=== PATIENT | female | born 1950 | race Caucasian/White ===

== ENCOUNTER 2023-06-26 23:44 | Inpatient (IN) | payer MEDICARE, OTHER, SELFPAY ==
[2023-06-26 15:29] VITALS: BP 149/102; BMI 24.0
[2023-06-26 16:07] LABS: % Basophils 0.4 % (0-2); % Eosinophils 0.1 % (0-6); % Immature Granulocytes 0.1 % (0-0.5); % Lymphocytes 29.3 % (20.5-51.1); % Neutrophils 63.1 % (42.2-75.2); Absolute Lymphocytes 2.1 10^3/uL (1.2-3.4); Absolute Monocytes 0.5 10^3/uL (0.1-0.6); Absolute Neutrophils 4.4 10^3/uL (1.4-6.5); Hematocrit 38.7 % (37.0-47.0); Hemoglobin 13.5 g/dL (12.0-16.0); Mean Corp Hgb Conc. 34.9 g/dL (33.0-37.0); Mean Corpuscular Hgb 32.6 pg (27.0-31.0); Mean Corpuscular Volume 93.5 fL (81.0-99.0); Mean Platelet Volume 9.8 fL (7.4-10.4); Nucleated Red Blood Cells % 0 %; Platelet Count 281 10^3/uL (130-400); Red Blood Cell Count 4.14 10^6/uL (4.20-5.40); Red Cell Dist. Width 13.1 % (11.5-14.5)
[2023-06-26 16:17] LABS: Amphetamines Negative (Negative); Barbiturates Negative (Negative); Benzodiazepines Negative (Negative); Buprenorphine Negative (Negative); Cocaine Negative (Negative); Marijuana Negative (Negative); Methadone Negative (Negative); Methamphetamines Negative (Negative); Opiates Negative (Negative); Phencyclidine Negative (Negative); Tricyclic Antidepressants Negative (Negative)
[2023-06-26 16:20] LABS: ALT (SGPT) 22 U/L (0-35); AST (SGOT) 27 U/L (14-36); Acetaminophen < 10 ug/ml (10-30); Albumin 4.6 g/dl (3.5-5.0); Alkaline Phosphatase 98 U/L (38-126); Blood Urea Nitrogen 12 mg/dl (7-17); Calcium 10.1 mg/dl (8.4-10.2); Carbon Dioxide 25 mmol/L (22-30); Chloride 100 mmol/L (98-107); Estimated Creatinine Clearance 64 ml/min; Glucose 112 mg/dl (70-99); Potassium 4.5 mmol/L (3.5-5.1); Salicylate < 1.0 mg/dl (2.0-20.0); Sodium 131 mmol/L (135-145); Total Bilirubin 0.5 mg/dl (0.2-1.3); Total Protein 7.9 g/dl (6.3-8.2); eGFR > 60.00
[2023-06-26 16:25] LABS: Alcohol None Detected
--- NOTE | 2023-06-26 18:14 | ED.GENMED ---
History of Present Illness
General
Chief Complaint: Overdose Unintentional
Source: patient and spouse
Exam Limitations: none
Time Seen by Provider: 06/26/23 18:14
Nursing documentation reviewed up to this point in time: agreed with
Travel History
Have you had any contact with someone who has COVID-19?: No
Do you have any symptoms of coronavirus? Fever > 100 degrees, chills, cough, shortness of breath, sore throat, loss of taste or smell, muscle aches, or headache?: No
History of Present Illness
History of Present Illness:
73-year-old female with history of HTN, bipolar disorder, depression went to bed 10 p.m. last night.
at bedside says he stayed up to watch TV, heard her calling him from down stairs at 5 a.m.
Pt states she was thirsty, she took 'too much Lamotrigine' by accident and she had to crawl down the stairs as she was extremely dizzy (room spinning) and couldn't walk due to the dizziness.
She has a 5/10 frontal headache, denies falling, her mouth is dry, she is nauseous, did vomit once last night.
states this happened once before
Pt state 'I'm absolutely positive I overdosed on the Lamotrigine' but cannot say how much she took.
Past History
Past History
ED Past Medical History: HTN, Psychiatric (Depression/anxiety, Bipolar) and Other (Left ankle fracture May 2016, PNA, RBBB. Eczema, ViT D Def, Cellulitis)
ED Past Surgical History: (�2) and Orthopedic (Left ankle bimalleolar fracture repair 05/25/2016; right hand surgery at age 19)
Social History
Tobacco: Non-smoker
Alcohol: Daily (Wine 2-3 glasses)
Drug: None
Personal:
Living: with family
Employment: Retired
Family History
Family History: Other (Noncontributory)
Review of Systems
Review of Systems
Allergies reviewed?: Yes
All Other Systems: ROS reviewed and negative except as documented in HPI and ROS
Constitutional: Denies fever
Respiratory: Denies trouble breathing
Cardiac: Denies chest pain
ABD/GI: Denies abdominal pain or nausea
: Denies dysuria, difficulty voiding or urgency
Musculoskeletal: Reports no symptoms; Denies edema, neck pain or back pain
Skin: Reports no symptoms
Neurological: Reports dizzy and headache; Denies weakness or numbness
Psychiatric: Denies depression or suicidal
Phy Exam
Physical Exam
Physical Exam:
GENERAL: No acute distress. A&Ox3.
CONSTITUTIONAL: Afebrile.
EYES: PERRL, conjunctivae normal
Neck: Supple
ENMT: moist mucus membranes, Pharynx nl
RESPIRATORY: Regular respirations, nonlabored, lungs clear.
CARDIOVASCULAR: Regular rate and rhythm, no murmurs, no rubs.
GI: Soft, nontender, normal BS
MUSCULOSKELETAL: Moves with ease. Well perfused.
SKIN: Warm, dry, pink
PSYCH: Normal mood and affect. Well kept, interactive and appropriate
NEUROLOGIC: Awake, alert and oriented. Speech clear, CN 2-12 intact. Finger to nose intact. No focal neurological deficits. Strength 5/5 throughout
Course
Orders/Labs/Results
Orders:
Orders
06/26/23 Dinner
Regular
At Your Request: Full Participation
Does patient need a safe tray?: No
06/26/23 15:35
Electrocardiogram (*1) Urgent
Reason for Study: Other
Other Reason for Exam: Potential overdose
06/26/23 15:36
EKG- Treatment ONCE
06/26/23 15:45
Acetaminophen Urgent
Alcohol Urgent
Complete Blood Count/With Diff Urgent
Comprehensive Metabolic Panel Urgent
Lamictal [Lamotrigine (Lamictal)] [S] Urgent
Salicylate Urgent
Urine Drug Abuse Screen Urgent
Date Specimen was Collected: 06/26/23
Time Specimen was Collected: 15:36
06/26/23 18:28
0.9% Sodium Chloride 1000 ml [Nss] 1,000 ml IV BOLUS
06/26/23 19:30
CT Head W/o Iv Contrast Urgent
Comment:
Reason For Exam: dizziness, overdose lamotrigine
06/26/23 21:17
0.9% Sodium Chloride 500 ml [Nss] 500 ml IV BOLUS
Meclizine [Antivert] 25 mg .ROUTE .STK-MED ONE
Meclizine [Antivert] 25 mg PO NOW STA
06/26/23 22:06
Acetaminophen [Tylenol] 1,000 mg PO NOW STA
Ondansetron Injectable [Zofran] 4 mg IV NOW STA
06/26/23 22:07
Acetaminophen [Tylenol] 1,000 mg .ROUTE .STK-MED ONE
Ondansetron Injectable [Zofran] 4 mg .ROUTE .STK-MED ONE
06/26/23 23:00
Flush (0.9% Sodium Chloride) [Flush (Nss)] See Dose Instructions IV PER PROTOCOL
06/26/23 23:04
Admit/Transfer Patient As Directed
Co-Sign Provider:
Level of Care: Inpatient admission
Assign to:: Telemetry
Physician / Group: cait
Diagnosis: lamotrigine toxicity
Reason for Telemetry: Arrhythmia
Date to Stop Telemetry: 06/29/23
Time to Stop Telemetry: 11:00
Reason for Hospitalization: lamotrigine toxicity
Expected length of stay greater than two midnights?: Yes
ELOS- Estimated Length of Stay in days: 2
I certify the patient meets the requirements for IP care: Yes
06/26/23 23:05
Code Status As Directed
Resuscitation Status: Full Code
06/26/23 23:10
Promethazine [Phenergan] 12.5 mg 0.9% Sodium Chloride 50 ml [Nss] 50 ml IV Q4HPRN
06/26/23 23:55
0.9% Sodium Chloride 1000 ml [Nss] 1,000 ml IV 100 mls/hr
Acetaminophen [Tylenol] 650 mg PO Q4HPRN PRN
06/26/23 23:55
Activity As Directed
Activity Level: As Tolerated
Vital Signs As Directed
Frequency: Per unit guidelines
DX Deep Vein Thrombosis Video Routine
06/27/23 04:04
Complete Blood Count/With Diff IN AM
Comprehensive Metabolic Panel IN AM
06/27/23 06:00
EKG [Electrocardiogram (*1)] IN AM
Reason for Study: QTc Monitoring
06/27/23 08:00
Cholecalciferol (Vitamin D3) [VITAMIN D3 (cholecalciferol)] 25 mcg PO DAILY
Heparin 5,000 units SC Q12
06/29/23 11:00
DC Protocol for Telemetry ONCE
Abnormal Lab Results
06/26/23
15:45
RBC 4.14 L 10^6/uL
(4.20-5.40)
MCH 32.6 H pg
(27.0-31.0)
Sodium 131 L mmol/L
(135-145)
Glucose 112 H mg/dl
(70-99)
Salicylates < 1.0 L mg/dl
(2.0-20.0)
Acetaminophen < 10 L ug/ml
(10-30)
06/26/23 15:45
06/26/23 15:45
Vital Signs
Initial and Last Documented VS:
Initial Vital Signs
Temp Pulse Resp BP Pulse Ox
98.7 F 79 16 149/102 98
06/26/23 15:29 04/10/24 15:29 06/26/23 15:29 06/26/23 15:29 06/26/23 15:29
Last Documented Vital Signs
Temp Pulse Resp BP Pulse Ox
98.3 F 69 13 146/93 93
06/26/23 23:54 06/27/23 07:15 06/27/23 07:15 06/27/23 04:06 06/27/23 07:15
MDM/Problems Addressed
Differential Diagnosis Includes:
overmedication, BPPV, CVA, Suicide attempt
MDM/Problems Addressed:
73-year-old female with history of HTN, bipolar disorder, depression went to bed 10 p.m. last night.
at bedside says he stayed up to watch TV, heard her calling him from down stairs at 5 a.m.
Pt states she was thirsty, she took 'too much Lamotrigine' by accident and she had to crawl down the stairs as she was extremely dizzy (room spinning) and couldn't walk due to the dizziness.
She has a 5/10 frontal headache, denies falling, her mouth is dry, she is nauseous, did vomit once last night.
states this happened once before when she accidentally overdosed on Seroquel.
Pt state 'I'm absolutely positive I overdosed on the Lamotrigine' but cannot say how much she took.
Denies suicidal thoughts. does not want to harm herself
CT head: Radiology report read: IMPRESSION:
1. There is no acute intracranial process.
2. Mild volume loss.
06/26/2023 2207 PM
After IVFs and Meclizine patient states she has a headache and is nauseous
06/26/2023 2240 PM
Patient out of bed and attempting to ambulate not comfortable going home as she is afraid she will fall.
Lamotrigine level pending.
Pt now states she thinks she took 6 Lamotrigine pills last night instead of two.
Plan: Admit: Ambulatory dysfunction, accidental over medication
Hospitalist notified of admission.
*EKG
EKG Intrepretation Date: 06/26/23
Interpretation: abnormal
Rate: normal
Rhythm: sinus
[place]: left axis deviation
Interval: long QT
QRS Pattern: normal QRS and right bundle branch block
Ischemia: no ischemia
*Critical Care Note
Total Time (30-74mins, 75-104mins- exclusive of procedures): Not Applicable
ED Attending Note
-
Portions of this chart may have been created with voice recognition software.� Occasional wrong word or��sound alike� substitutions may have occurred due to the inherent limitations of voice recognition software.
Discharge Plan
Departure
Patient Disposition: Admit
Date of Disposition: 06/26/23
Time of Disposition: 22:53
Presentation/result/management discussed w/ accepting MD/DO: Hospitalist
Condition: Fair
Discharge Problem:
Dizziness, Accidental overdose
Interventions
Interventions:
*Risk Screen - Suicide Last Done: 06/26/23 15:29
*General Assessment Last Done: 06/26/23 18:26
*Neglect/Abuse Screening Last Done: 06/26/23 15:29
ED- Fall Risk Assessment Last Done: 06/26/23 15:29
*ED COVID-19 Vaccine History Last Done: 06/26/23 15:29
*Nursing Disposition Last Done: 06/27/23 07:10
ED- Cardiac Assessment Last Done: 06/27/23 00:00
ED- Neurological Assessment Last Done: 06/27/23 00:00
ED-Psychological Assessment Last Done: 06/26/23 19:01
ED- Pulmonary Assessment Last Done: 06/27/23 00:00
[2023-06-26] MEDS: NSS 1000 IV (18:34)
[2023-06-26 18:40] VITALS: BP 162/97
[2023-06-26 19:00] VITALS: BP 153/94
[2023-06-26 21:00] VITALS: BP 148/110
[2023-06-26] MEDS: ANTIVERT 25 MG PO (21:20)
[2023-06-26] MEDS: NSS 500 IV (21:20)
[2023-06-26 22:00] VITALS: BP 150/108
[2023-06-26] MEDS: ZOFRAN 4 MG IV (22:09)
[2023-06-26] MEDS: TYLENOL 1000 MG PO (22:09)
--- NOTE | 2023-06-26 23:08 | HPS.HSE ---
Addendum entered and electronically signed by Vaughn Crow MD 06/26/23 23:11:
Held HCTZ.
Original Note:
Family Physician
-
Family Physician: Felicia Reeves
Chief Complaint
-
vertigo
History of Present Illness
73-year-old female past medical history of hypertension, bipolar disorder, depression, eczema, vitamin D deficiency, presenting with unintentional overdose. at bedside states that patient went to bed at 10 PM last night. He stated later he
heard her calling him from downstairs at 5 AM. Patient states that she was thirsty and took too much lamotrigine by accident and she had to crawl down the stairs as she was extremely dizzy with room spinning could not walk due to the vertigo. He
has 5 out of 10 frontal headache, and dry mouth, nausea and did vomit once last night. She also had some loose stools. Denies any abdominal pain. states that this happened once previously. Patient is sure that she took too much Lamictal
and took 6 tablets instead of 2. Her symptoms are improving. She denies any chest pain or shortness of breath or blurry vision, focal weakness or numbness or tingling. Denies any suicidal intent.
Medical History
Past Medical History
Past Medical History: Reports Other ( hypertension, bipolar disorder, depression, eczema, vitamin D deficiency)
Past Surgical History: Reports Other ( (�2) and Orthopedic (Left ankle bimalleolar fracture repair 05/25/2016; right hand surgery at age 19))
Social History
Tobacco: Non-smoker
Alcohol: Daily
Drug: None
Family History
Family History: Not pertinent
Allergies / Home Medications
Allergies reflects when Allergies were last updated in [employer].
Home Medications with original date entered in [employer]
Allergy/Medication List:
Allergies
Allergy/AdvReac Type Severity Reaction Status Date / Time
No Known Allergies Allergy Verified 06/26/23 15:29
Home Medications
lamotrigine 25 mg chewable dispersible tablet 300 mg PO QPM 06/15/12
quetiapine 50 mg tablet (Seroquel) 75 mg PO QPM 06/15/12
cholecalciferol (vitamin D3) 50 mcg (2,000 unit) tablet 4,000 units PO DAILY 05/14/20
lisinopril 20 mg tablet 20 mg PO DAILY 05/14/20
hydrocodone 5 mg-acetaminophen 325 mg tablet 1 tab PO Q6H PRN pain #10 tabs 10/01/21
Review of Systems
-
History Source: Patient
A 12 point ROS was completed and negative except as noted: Yes
Constitutional: Reports No Symptoms
EENT: Reports No Symptoms
Respiratory: Reports No Symptoms
Cardiac: Reports No Symptoms
Abdomen/GI: Reports No Symptoms
: Reports No Symptoms
Musculoskeletal: Reports No Symptoms
Skin: Reports No Symptoms
Neurological: Reports No Symptoms
Endocrine: Reports No Symptoms
Hematologic/Lymphatic: Reports No Symptoms
Psych: Reports No Symptoms
Physical Exam
Vital Signs
Vital Signs
Temp Pulse Resp BP Pulse Ox
98.7 F 74 18 153/94 98
06/26/23 15:29 06/26/23 19:45 06/26/23 19:45 06/26/23 19:00 06/26/23 19:45
Physical Exam
General: Well Developed, Well Nourished and No Apparent Distress
HEENT: NormoCephalic, Moist mucous membranes and Atraumatic
Respiratory: Clear
Cardiac: S1/S2 and Regular Rhythm; No Murmur or Rub
GI: Soft, Non Tender, Non Distended and Normal Bowel Sounds; No Organomegaly
Rectal: Deferred by Provider
Musculoskeletal: No Clubbing, No Cyanosis and No Edema
Skin: No Rash
Neuro: Nonfocal/grossly intact
Laboratory Results
-
06/26/23 15:45
06/26/23 15:45
Laboratory Results
Total Bilirubin 0.5 mg/dl (0.2-1.3) 06/26/23 15:45
AST 27 U/L (14-36) 06/26/23 15:45
ALT 22 U/L (0-35) 06/26/23 15:45
Alkaline Phosphatase 98 U/L (38-126) 06/26/23 15:45
Data Reviewed
-
Lab Data: Labs Reviewed by me
Old Records: Reviewed
Impression/Plan
-
IMPRESSION:
PLAN:
# Unintentional lamotrigine overdose
# QTc prolongation
# Old right bundle branch block
-UDS shows negative salicylates, Tylenol, negative alcohol and drug panel
-Lamotrigine level pending
-Telemetry monitoring
-IV fluids
-hold lamotrigine and Seroquel
-EKG shows normal sinus rhythm with QTc of 495, right bundle branch block which is old
-Check EKG in the morning
-Minimize antiemetics, Phenergan if needed for nausea
# Hyponatremia secondary to vomiting
-Monitor with IV fluids
Bipolar disorder
-Hold Lamictal, Seroquel
Daily alcohol use
-2 glasses of wine daily
Essential hypertension
-Continue lisinopril
Eczema
Vitamin D deficiency
Full code
DVT prophylaxis�heparin
Regular diet
[2023-06-26 23:53] VITALS: BP 151/81
[2023-06-27] VITALS (7 sets, daily range): BP systolic 112–146; BP diastolic 50–93; PULSE 78–81; BMI 23.8
[2023-06-27] MEDS: NSS 1000 IV ×2 (00:10→09:14)
[2023-06-27 04:16] LABS: % Basophils 0.5 % (0-2); % Eosinophils 0.7 % (0-6); % Immature Granulocytes 0.3 % (0-0.5); % Lymphocytes 48.7 % (20.5-51.1); % Monocytes 7.9 % (1.7-9.3); % Neutrophils 41.9 % (42.2-75.2); Absolute Lymphocytes 2.8 10^3/uL (1.2-3.4); Absolute Monocytes 0.5 10^3/uL (0.1-0.6); Absolute Neutrophils 2.4 10^3/uL (1.4-6.5); Hematocrit 35.4 % (37.0-47.0); Hemoglobin 11.7 g/dL (12.0-16.0); Mean Corp Hgb Conc. 33.1 g/dL (33.0-37.0); Mean Corpuscular Volume 96.7 fL (81.0-99.0); Mean Platelet Volume 10.3 fL (7.4-10.4); Nucleated Red Blood Cells % 0 %; Platelet Count 240 10^3/uL (130-400); Red Blood Cell Count 3.66 10^6/uL (4.20-5.40); Red Cell Dist. Width 13.1 % (11.5-14.5); White Blood Cell Count 5.8 10^3/uL (4.8-10.8)
[2023-06-27 04:43] LABS: ALT (SGPT) 18 U/L (0-35); AST (SGOT) 22 U/L (14-36); Albumin 3.9 g/dl (3.5-5.0); Alkaline Phosphatase 77 U/L (38-126); Blood Urea Nitrogen 7 mg/dl (7-17); Calcium 9.3 mg/dl (8.4-10.2); Carbon Dioxide 26 mmol/L (22-30); Chloride 102 mmol/L (98-107); Estimated Creatinine Clearance 64 ml/min; Glucose 103 mg/dl (70-99); Potassium 3.9 mmol/L (3.5-5.1); Sodium 134 mmol/L (135-145); Total Bilirubin 0.7 mg/dl (0.2-1.3); Total Protein 6.7 g/dl (6.3-8.2); eGFR > 60.00
[2023-06-27] MEDS: TYLENOL 650 MG PO (06:48)
[2023-06-27] MEDS: HEPARIN 5000 UNITS SC (09:12)
[2023-06-27] MEDS: VITAMIN D3 (cholecalciferol) 25 MCG PO (09:12)
--- NOTE | 2023-06-27 10:56 | W.PN.HOSP.TC ---
Addendum entered and electronically signed by Carter Hastings MD 06/27/23 12:50:
Patient was reevaluated. Patient worked with physical therapy earlier today. Patient without any lightheaded dizziness, headache, blurred vision diarrhea or drowsiness. Currently listening to audiobooks. Patient tolerating diet. Vitals stable.
Patient eager to get discharged. Recommended to hold lamotrigine tonight and restart tomorrow.
More than 30 minutes spent in discharge including
Final examination of the patient
Summarizing hospital stay
Instructions for continuing care to all relevant caregivers
Preparation of discharge records, prescriptions, and referral forms
Total time spent (in minutes): 45
Original Note:
Today's Communication/Plan
-
PT eval
check orthostatics
await lamictal level -probably will take time
tolerating diet
If feeling better tentative dc later
Assessment / Plan
Assessment / Plan
# Unintentional lamotrigine overdose
# QTc prolongation imrpoved
# Chronic right bundle branch block-Saw Cardiology in the past
-UDS shows negative salicylates, Tylenol, negative alcohol and drug panel
-Lamotrigine level pending-Pt understands it's send out and will take time.
-Telemetry monitoring
-IV fluids
-hold lamotrigine and Seroque and can probably restart in am. Took 5 tablets of lamotrigine instead of usual 2 tablets.
-EKG with improvement in QTc to 462.
-Minimize antiemetics, Phenergan if needed for nausea
# Hyponatremia secondary to vomiting
-improved.
Bipolar disorder
-Hold Lamictal, Seroquel
Daily alcohol use
-2 glasses of wine daily
Essential hypertension
-Check orthostatics. If negative restart HCTZ
Eczema
Vitamin D deficiency
Full code
DVT prophylaxis�heparin
Regular diet
Anticipated Discharge: Within 24 hours
Subjective/Interval History
-
Date of Service: June 27, 2023
States feeling better compared to baseline
States she forgot that she took lamotrigine early on in the day and then decided to take additional dose to make up for it
Denies any suicidal ideation
States it was accidental mistake
Asked multiple times if he was intentional which patient refused
States of mild lightheadedness
Objective Data
-
Labs:
Laboratory Results
06/27/23
04:04
WBC 5.8
Hgb 11.7 L
Hct 35.4 L
Plt Count 240
Sodium 134 L
Potassium 3.9
Chloride 102
Carbon Dioxide 26
BUN 7
Creatinine 0.7
Glucose 103 H
Calcium 9.3
Total Bilirubin 0.7
AST 22
ALT 18
Alkaline Phosphatase 77
Vital Signs:
Vital Signs
Temp Pulse Resp BP Pulse Ox
98.3 F 69 13 146/93 93
06/26/23 23:54 06/27/23 07:15 06/27/23 07:15 06/27/23 04:06 06/27/23 07:15
Physical Exam
-
General: Well Developed and No Apparent Distress
HEENT: Normocephalic, Atraumatic and Moist Mucous Membranes
Respiratory: Clear to Auscultation
Cardiac: Regular Rhythm and S1/S2; Negative Murmur, Rub or Gallop
GI: Soft, Nontender, Nondistended and Normal Bowel Sounds; Negative Organomegaly
Rectal: Deferred by Provider
Musculoskeletal: No Clubbing, No Cyanosis and No Edema
Skin: Negative Rash
Neuro: Awake, AO x 3, No Motor Deficits and Nonfocal/Grossly Intact
Psych: Calm
Data Reviewed
-
Total Time Spent with Patient (in minutes): 55
--- NOTE | 2023-06-27 12:51 | W.DCSUMMARY ---
Discharge Summary
Discharge Data
Date of Admission: 06/26/23
Date of Discharge: 06/27/23
-
Pending Results: No
Hospital Course
73-year-old female past medical history of bipolar, hypertension, alcohol abuse, vitamin D deficiency is presenting from home with nausea and lightheadedness. Patient states she forgot she took lamotrigine earlier in the day and she took extra
tablets. Denied suicidal intent. States she took 3 extra pills. Patient was started on IV fluid resuscitation. Patient initial EKG with QTc prolonged at 495 which downtrended to 462. Patient lamotrigine level was checked and it was still
pending. Urine drug screen was negative. Salicylate and acetaminophen level negative. Alcohol nondetected. Patient was tolerating diet. Patient was seen by physical therapy. Patient without any lightheaded or dizziness. Patient was tolerating
diet without any nausea or vomiting. No headache.. Patient be discharged home with recommendation to hold lamotrigine dose tonight and restart tomorrow.
Discharge Plan
-
Patient Disposition: Home (Routine Discharge)
Discharge Diagnosis/Procedures: Lamotrigine accidental overdose
Dehydration
Condition: Fair
Diet: As tolerated
Activity: With assistance
Driving Restrictions: No driving for 24 hours
Referrals:
Felicia Reeves MD [Family Provider] - in less than 1 week
Prescriptions:
Continued
quetiapine 100 mg tablet
100 mg PO HS
hydrochlorothiazide 25 mg tablet
25 mg PO DAILY
cholecalciferol (vitamin D3) [Vitamin D3] 25 mcg (1,000 unit) Tablet
25 mcg PO DAILY
Held
lamotrigine 200 mg tablet
400 mg PO HS
Hold Instructions: Resume on 06/28/23.
Discharge Orders:
Discharge Patient (As Directed); Ordered 06/27/23
Ordered By: Carter Hastings
Discharge Date and Time
Discharge Date/Time: 06/27/23 13:15
Print Language: PASHTO
--- NOTE | 2023-06-27 13:14 | CM ---
CM reviewed medical records. Patient medically ready for discharge. No needs noted.
PLAN: home no needs.
--- NOTE | 2023-06-27 13:22 | PTCARENOTE ---
Discharge instructions reviewed with pt and . IV site removed. Pt walked out by self.
[2023-06-28 15:22] LABS: Lamotrigine (Lamictal) 17.9 ug/mL (3.0-15.0)
== END 2023-06-27 13:15 | disposition home or self-care (01) | DRG 918 ==
LOC: ED 23:44
PROVIDERS: Student in an Organized Health Care Education/Training Program; ADMITTING PHYSICIAN Hospitalist; ATTENDING PHYSICIAN Hospitalist; EMERGENCY PHYSICIAN Emergency Medicine; FAMILY PHYSICIAN Family Medicine
DX: T42.6X1A Poisoning by other antiepileptic and sedative-hypnotic drugs, accidental (unintentional), initial encounter (principal); E87.1 Hypo-osmolality and hyponatremia; R42 Dizziness and giddiness; E86.0 Dehydration; F31.9 Bipolar disorder, unspecified; I10 Essential (primary) hypertension; I45.10 Unspecified right bundle-branch block; F41.9 Anxiety disorder, unspecified; R26.2 Difficulty in walking, not elsewhere classified; E55.9 Vitamin D deficiency, unspecified; L30.9 Dermatitis, unspecified; F10.10 Alcohol abuse, uncomplicated; Y92.009 Unspecified place in unspecified non-institutional (private) residence as the place of occurrence of the external cause; Z87.828 Personal history of other (healed) physical injury and trauma
CPT/HCPCS: 70450; 80053; 80143; 80175; 80179; 80306; 82077; 85025; 93005; 96361; 96374; 97161; 99285

== ENCOUNTER → 2024-02-17 16:45 | Outpatient (REF) | payer MEDICARE, OTHER, SELFPAY | LOC: HWRAD 16:45 | PROVIDERS: ATTENDING PHYSICIAN Family Medicine; REFERRING PHYSICIAN Family Medicine | DX: S69.92XA Unspecified injury of left wrist, hand and finger(s), initial encounter (principal) | CPT/HCPCS: 73120 ==

== ENCOUNTER 2024-08-31 22:47 | Emergency (ER) | payer MEDICARE, OTHER, SELFPAY ==
[2024-08-31 22:53] VITALS: BP 121/85
[2024-08-31 23:24] VITALS: BP 122/87
--- NOTE | 2024-08-31 23:46 | ED.GENMED ---
History of Present Illness
General
Chief Complaint: Overdose Unintentional
Source: patient
Exam Limitations: none
Time Seen by Provider: 08/31/24 23:10
Nursing documentation reviewed up to this point in time: agreed with
History of Present Illness
History of Present Illness:
The patient is a 74-year-old female who presented with a concern of potentially ingesting an excessive amount of ibuprofen. The patient reported that she took her routine medications, which include lamotrigine, sertraline, omeprazole, vitamins, and
a laxative. Additionally, she consumed 1,000 milligrams of ibuprofen [id number]. Her primary concern was whether this dose posed any risk to her health. The patient is not on blood thinners and has no history of gastrointestinal ulcers, heart
disease, or stroke. The potential risks of ibuprofen were discussed.
Past History
Past History
ED Past Medical History: HTN, Psychiatric (Depression/anxiety, Bipolar) and Other (Left ankle fracture May 2016, PNA, RBBB. Eczema, ViT D Def, Cellulitis)
ED Past Surgical History: (�2) and Orthopedic (Left ankle bimalleolar fracture repair 05/25/2016; right hand surgery at age 19)
Social History
Tobacco: Non-smoker
Alcohol: Daily (Wine 2-3 glasses)
Drug: None
Personal:
Living: with family
Employment: Retired
Family History
Family History: Other (Noncontributory)
Review of Systems
Review of Systems
Allergies reviewed?: Yes
All Other Systems: ROS reviewed and negative except as documented in HPI and ROS
Phy Exam
Physical Exam
Physical Exam:
GENERAL: Alert , in no apparent distress
EYE: pupils equal and reactive
NECK: Supple, no significant adenopathy.
ENT: o/p clr, mmm.
CARDIAC: Regular rate and rhythm .
LUNGS: Clear breath sounds bilaterally, no acute respiratory distress, no wheezes/rales/rhonchi
ABDOMEN: Soft, without focal tenderness, no r/g, no cvat
NEUROLOGICAL: Alert and oriented, no focal neuro deficits
SKIN: Warm and dry, skin intact.
MUSCULOSKELETAL: No edema, well perfused.
PSYCH: Normal and appropriate interaction.
Course
Vital Signs
Initial and Last Documented VS:
Initial Vital Signs
Temp Pulse Resp BP Pulse Ox
98.6 F 95 19 121/85 95
08/31/24 22:53 08/31/24 22:53 08/31/24 22:53 08/31/24 22:53 08/31/24 22:53
Last Documented Vital Signs
Temp Pulse Resp BP Pulse Ox
98.6 F 95 19 122/87 95
08/31/24 22:53 08/31/24 22:53 08/31/24 22:53 08/31/24 23:24 08/31/24 23:24
MDM/Problems Addressed
MDM/Problems Addressed:
74-year-old female presenting with concerns of taking 1000 mg of ibuprofen prior to arrival. Here she is well-appearing no distress with normal vital signs. She is not take any blood thinners, no history of kidney disease heart disease or previous
stroke vascular disease. Patient's dose of 1000 mg unlikely cause any emergent process. Patient no symptoms at this time stable for discharge.
*Critical Care Note
Total Time (30-74mins, 75-104mins- exclusive of procedures): Not Applicable
ED Attending Note
-
Portions of this chart may have been created with voice recognition software.� Occasional wrong word or��sound alike� substitutions may have occurred due to the inherent limitations of voice recognition software.
Discharge Plan
Departure
Patient Disposition: Home (Routine Discharge)
Date of Disposition: 08/31/24
Time of Disposition: 23:47
Patient with high blood pressure during this ER visit?: No
Condition: Good
Covid-19: Not Applicable
Discharge Problem:
Accidental overdose
Instructions: Accidental Overdose (DC)
Prescriptions:
No Action
lamotrigine 200 mg tablet
400 mg PO HS
quetiapine 100 mg tablet
100 mg PO HS
hydrochlorothiazide 25 mg tablet
25 mg PO DAILY
cholecalciferol (vitamin D3) [Vitamin D3] 25 mcg (1,000 unit) Tablet
25 mcg PO DAILY
Referrals:
Felicia Reeves MD [Family Provider, [facility]]
Activity Restrictions/Additional Instructions:
You came to the emergency department today with concerns of taking too much medication. Here you had a reassuring assessment. Return for any worsening, new or concerning symptoms.
Interventions
Interventions:
*Risk Screen - Suicide Last Done: 08/31/24 22:53
*General Assessment Last Done: 08/31/24 23:30
*Neglect/Abuse Screening Last Done: 08/31/24 22:53
*ED- Fall Risk Assessment Last Done: 08/31/24 23:30
*ED COVID-19 Vaccine History Last Done: 08/31/24 23:30
ED- Cardiac Assessment Last Done: 08/31/24 23:30
ED- Neurological Assessment Last Done: 08/31/24 23:30
ED-Psychological Assessment Last Done: 08/31/24 23:32
ED- Pulmonary Assessment Last Done: 08/31/24 23:30
Discharge Date and Time
Print Language: [place]
== END 2024-09-01 00:02 | disposition home or self-care (01) ==
LOC: EMR 22:47
PROVIDERS: EMERGENCY PHYSICIAN Emergency Medicine; FAMILY PHYSICIAN Family Medicine
DX: T39.311A Poisoning by propionic acid derivatives, accidental (unintentional), initial encounter (principal); Z79.899 Other long term (current) drug therapy
CPT/HCPCS: 99282